=== PATIENT | female | born 1970 | race Caucasian/White ===

== ENCOUNTER 2018-05-08 03:22 | Inpatient (IN) | payer OTHER ==
[2018-05-08] MEDS ORDERED: PROPOFOL 1,000 MG in EMPTY BAG 1 BAG IV ONE (03:31)
[2018-05-08 03:49] LABS: Glucose,Whole Blood 115 mg/dL (75-99)
[2018-05-08 03:57] LABS: Basophils % (A) 0 %; Eosinophils # (A) 0.4 k/uL (0-0.7); Eosinophils % (A) 2 %; HGB 13.9 gm/dL (11.4-16.0); Lymphocytes # (A) 1.9 k/uL (1.0-4.8); Lymphocytes % (A) 9 %; MCH 31.5 pg (25.0-35.0); MCHC 33.8 g/dL (31.0-37.0); Mean Platelet Volume 6.5; Monocytes # (A) 0.8 k/uL (0-1.0); Monocytes % (A) 4 %; Neutrophils # (A) 17.5 k/uL (1.3-7.7); Neutrophils % (A) 85 %; Platelet Count 272 k/uL (150-450); RDW 12.6 % (11.5-15.5); WBC 20.7 k/uL (3.8-10.6)
[2018-05-08 04:15] LABS: ABG Base Excess 0.9 mmol/L; ABG HCO3 26 mmol/L (21-25); ABG PCO2 45 mmHg (35-45); ABG PH 7.38 (7.35-7.45); ABG PO2 329 mmHg (83-108); ABG TCO2 28 mmol/L (19-24)
[2018-05-08 04:27] LABS: ALT 32 U/L (9-52); AST 83 U/L (14-36); Acetaminophen <10.0 ug/mL; Albumin 3.9 g/dL (3.5-5.0); Alcohol <10 mg/dL; Alkaline Phosphatase 84 U/L (38-126); Anion Gap 7 mmol/L; Blood Urea Nitrogen 13 mg/dL (7-17); Calcium 9.1 mg/dL (8.4-10.2); Carbon Dioxide 23 mmol/L (22-30); Chloride 110 mmol/L (98-107); Glucose 112 mg/dL (74-99); Potassium 4.1 mmol/L (3.5-5.1); Salicylate <1.0 mg/dL; Sodium 140 mmol/L (137-145); Total Bilirubin 0.5 mg/dL (0.2-1.3); Total Protein 6.7 g/dL (6.3-8.2)
[2018-05-08] MEDS ORDERED: ACETAMINOPHEN SUPPOSITORY 650 MG SUPP RECTAL PRN (05:14)
[2018-05-08] MEDS ORDERED: NALOXONE 0.4 MG/ML 1 ML VIAL IV PRN (05:14)
[2018-05-08] MEDS ORDERED: ARTIFICIAL TEARS OINTMENT 3.5 GM TUBE BOTH EYES PRN (05:14)
[2018-05-08] MEDS ORDERED: LORazepam 2 MG/ML INJ IV STA (05:18)
[2018-05-08] MEDS ORDERED: SODIUM CHLORIDE 0.9% 1,000 ML IV ONE (05:21)
--- NOTE | 2018-05-08 05:21 | ED ---
Overdose HPI - General Chief Complaint: Overdose Stated Complaint: Overdose Time Seen by Provider: 05/08/18 03:24 Source: EMS Mode of arrival: EMS Limitations: language barrier, altered mental status, physical limitation - History of Present Illness Initial Comments: This patient is a 48-year-old woman transferred here from outside hospital. Patient not able to give any history due to altered mental status and intubation. The history reported to us from the outside hospital is that she had a suicide attempt. There is a Xerox copy of a suicide note in the patient' s record from the other hospital. It was reported to us that she had taken over 20 tablets of Zyprexa. The patient reportedly arrived there with a GCS below 8 and was therefore intubated for altered mental status and airway protection. MD Complaint: intentional overdose -: unknown How Overdose Was Discovered: other (Patient found by son) Treatments Prior to Arrival: oxygen, IV fluids, other - Related Data Home Medications Medication Instructions Recorded Confirmed No Known Home Medications 05/08/18 05/08/18 Allergies Allergy/AdvReac Type Severity Reaction Status Date / Time No Known Allergies Allergy Verified 05/08/18 03:49 Review of Systems ROS Statement: Those systems with pertinent positive or pertinent negative responses have been documented in the HPI. ROS Other: All systems not noted in ROS Statement are negative. Limitations: ROS unobtainable due to patients medical condition Past Medical History Past Medical History: No Reported History History of Any Multi-Drug Resistant Organisms: Unobtainable Past Surgical History: Hysterectomy Past Psychological History: Bipolar, Depression Smoking Status: Current every day smoker Past Alcohol Use History: None Reported Past Drug Use History: Marijuana General Exam Limitations: language barrier, altered mental status, physical limitation General appearance: obtunded Head exam: Present: atraumatic, normocephalic Eye exam: Present: normal appearance. Absent: scleral icterus, conjunctival injection ENT exam: Present: other (There is an endotracheal tube and gastric tube present with normal appearance.) Neck exam: Present: normal inspection Respiratory exam: Present: rhonchi. Absent: respiratory distress, wheezes, rales, chest wall tenderness Cardiovascular Exam: Present: regular rate, normal rhythm, normal heart sounds. Absent: systolic murmur, diastolic murmur, rubs, gallop GI/Abdominal exam: Present: soft. Absent: distended, tenderness, guarding, rebound, mass Extremities exam: Present: normal inspection, normal capillary refill. Absent: tenderness, pedal edema Back exam: Present: normal inspection Skin exam: Present: warm, dry, intact, normal color. Absent: rash Course Vital Signs 05/08/18 05/08/18 05/08/18 03:23 03:26 03:31 Temperature 96.8 F L Pulse Rate 120 H 111 H 113 H Respiratory 18 18 Rate Blood Pressure 158/96 148/91 142/88 O2 Sat by Pulse 100 100 100 Oximetry 05/08/18 05/08/18 05/08/18 03:54 04:05 04:20 Temperature Pulse Rate 109 H 117 H 112 H Respiratory 18 28 H 28 H Rate Blood Pressure 136/82 150/90 129/71 O2 Sat by Pulse 100 98 97 Oximetry 05/08/18 05/08/18 04:59 05:17 Temperature Pulse Rate 110 H 120 H Respiratory 25 H 27 H Rate Blood Pressure 145/78 149/81 O2 Sat by Pulse 98 100 Oximetry Medical Decision Making - Lab Data Result diagrams: 05/08/18 03:43 05/08/18 03:43 Lab Results 05/08/18 05/08/18 05/08/18 Range/Units 03:30 03:43 03:43 WBC 20.7 H (3.8-10.6) k/uL RBC 4.40 (3.80-5.40) m/uL Hgb 13.9 (11.4-16.0) gm/dL Hct 41.0 (34.0-46.0) % MCV 93.0 (80.0-100.0) fL MCH 31.5 (25.0-35.0) pg MCHC 33.8 (31.0-37.0) g/dL RDW 12.6 (11.5-15.5) % Plt Count 272 (150-450) k/uL Neutrophils % 85 % Lymphocytes % 9 % Monocytes % 4 % Eosinophils % 2 % Basophils % 0 % Neutrophils # 17.5 H (1.3-7.7) k/uL Lymphocytes # 1.9 (1.0-4.8) k/uL Monocytes # 0.8 (0-1.0) k/uL Eosinophils # 0.4 (0-0.7) k/uL Basophils # 0.0 (0-0.2) k/uL Sample Site ABG pH (7.35-7.45) ABG pCO2 (35-45) mmHg ABG pO2 (83-108) mmHg ABG HCO3 (21-25) mmol/L ABG Total CO2 (19-24) mmol/L ABG O2 Saturation (94-97) % ABG Base Excess mmol/L Miller Test FiO2 % Sodium 140 (137-145) mmol/L Potassium 4.1 (3.5-5.1) mmol/L Chloride 110 H (98-107) mmol/L Carbon Dioxide 23 (22-30) mmol/L Anion Gap 7 mmol/L BUN 13 (7-17) mg/dL Creatinine 0.69 (0.52-1.04) mg/dL Est GFR (CKD-EPI)AfAm >90 (>60 ml/min/1.73 sqM) Est GFR (CKD-EPI)NonAf >90 (>60 ml/min/1.73 sqM) Glucose 112 H (74-99) mg/dL POC Glucose (mg/dL) 115 H (75-99) mg/dL POC Glu Girl Friday ID Naomi Trejo Calcium 9.1 (8.4-10.2) mg/dL Total Bilirubin 0.5 (0.2-1.3) mg/dL AST 83 H (14-36) U/L ALT 32 (9-52) U/L Alkaline Phosphatase 84 (38-126) U/L Total Protein 6.7 (6.3-8.2) g/dL Albumin 3.9 (3.5-5.0) g/dL Salicylates <1.0 mg/dL Acetaminophen <10.0 ug/mL Serum Alcohol <10 mg/dL 05/08/18 Range/Units 04:05 WBC (3.8-10.6) k/uL RBC (3.80-5.40) m/uL Hgb (11.4-16.0) gm/dL Hct (34.0-46.0) % MCV (80.0-100.0) fL MCH (25.0-35.0) pg MCHC (31.0-37.0) g/dL RDW (11.5-15.5) % Plt Count (150-450) k/uL Neutrophils % % Lymphocytes % % Monocytes % % Eosinophils % % Basophils % % Neutrophils # (1.3-7.7) k/uL Lymphocytes # (1.0-4.8) k/uL Monocytes # (0-1.0) k/uL Eosinophils # (0-0.7) k/uL Basophils # (0-0.2) k/uL Sample Site Right Radial ABG pH 7.38 (7.35-7.45) ABG pCO2 45 (35-45) mmHg ABG pO2 329 H (83-108) mmHg ABG HCO3 26 H (21-25) mmol/L ABG Total CO2 28 H (19-24) mmol/L ABG O2 Saturation 100.0 H (94-97) % ABG Base Excess 0.9 mmol/L Miller Test Yes FiO2 100 % Sodium (137-145) mmol/L Potassium (3.5-5.1) mmol/L Chloride (98-107) mmol/L Carbon Dioxide (22-30) mmol/L Anion Gap mmol/L BUN (7-17) mg/dL Creatinine (0.52-1.04) mg/dL Est GFR (CKD-EPI)AfAm (>60 ml/min/1.73 sqM) Est GFR (CKD-EPI)NonAf (>60 ml/min/1.73 sqM) Glucose (74-99) mg/dL POC Glucose (mg/dL) (75-99) mg/dL POC Glu Girl Friday ID Calcium (8.4-10.2) mg/dL Total Bilirubin (0.2-1.3) mg/dL AST (14-36) U/L ALT (9-52) U/L Alkaline Phosphatase (38-126) U/L Total Protein (6.3-8.2) g/dL Albumin (3.5-5.0) g/dL Salicylates mg/dL Acetaminophen ug/mL Serum Alcohol mg/dL - EKG Data -: EKG Interpreted by Me EKG shows normal: sinus rhythm, axis (Normal), intervals (Normal), QRS complexes (Normal), ST-T waves (Normal) Rate: tachycardia (Rate 110 bpm) Disposition Referrals: None,Stated [Primary Care Provider] - 1-2 days
[2018-05-08] MEDS: SODIUM CHLORIDE 0.9% 1,000 ML IV SCH ×3 (05:22→19:04)
--- NOTE | 2018-05-08 06:50 | P.HPIM ---
History of Present Illness H&P Date: 05/08/18 Chief Complaint: overdose, SI attempt The patient is a 48-year-old obese female that presented to the ED after being transferred from [facility] after attempted suicide with drug overdose. The patient is currently sedated and on a ventilator hence the history is obtained from medical records. Apparently the patient took 29 pills of Zyprexa 20 mg and left a suicide note which was found prematurely by her son , who called EMS. Upon arrival patient was reportedly unresponsive to verbal stimuli And there was dried bloody emesis on her face. On arrival to the ED it was noted she had a GCS of a and she was subsequently intubated for airway protection with etomidate and succinylcholine and sedated on Versed and subsequently transferred here, she was subsequently switched to propofol Review of records indicates significant leukocytosis of 20.7, EKG showing sinus tachycardia, UDS positive for THC, ABG 7.38/45/329/26 on FI o2 100%. Patient is noted to be tachycardic on the ventilator but normotensive. Review of Systems ROS unobtainable: due to endotracheal tube Past Medical History Past Medical History: No Reported History History of Any Multi-Drug Resistant Organisms: Unobtainable Past Surgical History: Hysterectomy Past Psychological History: Bipolar, Depression Smoking Status: Current every day smoker Past Alcohol Use History: None Reported Past Drug Use History: Marijuana Medications and Allergies Home Medications Medication Instructions Recorded Confirmed Type No Known Home Medications 05/08/18 05/08/18 History Allergies Allergy/AdvReac Type Severity Reaction Status Date / Time No Known Allergies Allergy Verified 05/08/18 03:49 Physical Exam Vitals: Vital Signs Temp Pulse Resp BP Pulse Ox 05/08/18 06:20 112 H 26 H 134/63 100 05/08/18 05:55 97.5 F L 114 H 24 141/53 100 05/08/18 05:17 120 H 27 H 149/81 100 05/08/18 04:59 110 H 25 H 145/78 98 05/08/18 04:20 112 H 28 H 129/71 97 05/08/18 04:05 117 H 28 H 150/90 98 05/08/18 03:54 109 H 18 136/82 100 05/08/18 03:31 113 H 18 142/88 100 05/08/18 03:26 96.8 F L 111 H 18 148/91 100 05/08/18 03:23 120 H 158/96 100 Intake and Output 05/07/18 05/07/18 05/08/18 14:59 22:59 06:59 Intake Total 27.056 Output Total 554 Balance -526.944 Intake: Intake, IV Titration 27.056 Amount Propofol 1,000 mg In 27.056 Empty Bag 1 bag @ Titrate IV .Q0M ONE Rx#: [id number] Output: Gastric Drainage 54 Urine 500 Other: Weight 117.163 kg Constitutional: No acute distress, conversant, ventilated and sedated on propofol Eyes: Anicteric sclerae, moist conjunctiva, no lid-lag, PERRLA ENMT: NC/AT,Oropharynx clear, no erythema, exudates, ET tube in place Neck:Supple, FROM, no masses, or JVD, No carotid bruits; No thyromegaly Lungs: Clear to auscultation, Clear to percussion, Normal respiratory effort, no accessory muscle use Cardiovascular: Heart regular in rate and rhythm, No murmurs, gallops, or rubs no peripheral edema Abdominal: Soft Nontender, nom distended, no guarding, no rebound or rigidity, Normoactive bowel sounds No hepatomegaly, No splenomegaly, No palpable mass No abdominal wall hernia noted Skin: Normal temperature, tone, texture, turgor, No induration No subcutaneous nodules, No rash, lesions, No ulcers Extremities:No digital cyanosis No clubbing, Pedal pulses intact and symmetrical Radial pulses intact and symmetrical Normal gait and station, No calf tenderness Results CBC & Chem 7: 05/08/18 03:43 05/08/18 03:43 Labs: Abnormal Lab Results - Last 24 Hours (Table) 05/08/18 05/08/18 05/08/18 Range/Units 03:30 03:43 03:43 WBC 20.7 H (3.8-10.6) k/uL Neutrophils # 17.5 H (1.3-7.7) k/uL ABG pO2 (83-108) mmHg ABG HCO3 (21-25) mmol/L ABG Total CO2 (19-24) mmol/L ABG O2 Saturation (94-97) % Chloride 110 H (98-107) mmol/L Glucose 112 H (74-99) mg/dL POC Glucose (mg/dL) 115 H (75-99) mg/dL AST 83 H (14-36) U/L 05/08/18 Range/Units 04:05 WBC (3.8-10.6) k/uL Neutrophils # (1.3-7.7) k/uL ABG pO2 329 H (83-108) mmHg ABG HCO3 26 H (21-25) mmol/L ABG Total CO2 28 H (19-24) mmol/L ABG O2 Saturation 100.0 H (94-97) % Chloride (98-107) mmol/L Glucose (74-99) mg/dL POC Glucose (mg/dL) (75-99) mg/dL AST (14-36) U/L Assessment and Plan Assessment: The patient is admitted anticipated greater than 2 midnight stay with attempted suicide and intentional drug overdose was currently ventilator dependent for airway protection. Plan to consult in-house sail repairer, continue IV fluids. Currently afebrile, with noted leukocytosis, urinalysis negative, check chest x- ray and blood culture. Continue IV PPI therapy place the patient on DVT prophylaxis with Lovenox. We'll also consult psychiatry to see the patient once extubated. Continue to follow her clinical course. CODE STATUS Unable to obtain proceed with full code Anticipated discharge Be determined by clinical course (1) Intentional drug overdose Current Visit: Yes Status: Acute Code(s): T50.902A - POISONING BY UNSP DRUG/ MEDS/BIOL SUBST, SELF-HARM, INIT SNOMED Code(s): 86623348 (2) Ventilator dependent Current Visit: Yes Status: Acute Code(s): Z99.11 - DEPENDENCE ON RESPIRATOR [VENTILATOR] STATUS SNOMED Code(s): 319963044 (3) Suicide attempt Current Visit: Yes Status: Acute Code(s): T14.91XA - SUICIDE ATTEMPT, INITIAL ENCOUNTER SNOMED Code(s): 16908937 (4) Leukocytosis Current Visit: Yes Status: Acute Code(s): D72.829 - ELEVATED WHITE BLOOD CELL COUNT, UNSPECIFIED SNOMED Code(s): 442113512 (5) Marijuana abuse Current Visit: Yes Status: Acute Code(s): F12.10 - CANNABIS ABUSE, UNCOMPLICATED SNOMED Code(s): 97102985
[2018-05-08 06:57] LABS: Glucose,Whole Blood 94 mg/dL (75-99)
--- NOTE | 2018-05-08 07:14 | XR ---
EXAMINATION TYPE: XR chest 1V DATE OF EXAM: 05/08/2018 COMPARISON: Outside radiographs same day HISTORY: 48-year-old female with drug overdose TECHNIQUE: Single frontal view of the chest is obtained. FINDINGS: ET tube tip approximately 3.5 cm from the franki. NG tube courses below the diaphragm. Heart normal s ize. Aorta within normal limits. There is patchy and strandy right basilar opacity. Additional strand y density left infrahilar region. IMPRESSION: 1. Satisfactory ET and NG tubes. 2. Patchy right basilar atelectasis or developing pneumonitis. Follow-up can be performed.
[2018-05-08] MEDS: FAMOTIDINE 20 MG/2 ML VIAL IV SCH ×2 (08:37→20:54)
[2018-05-08] MEDS: ENOXAPARIN 40 MG/0.4 ML SYRINGE SQ SCH (08:37)
[2018-05-08] MEDS ORDERED: CHLORHEXIDINE GLUCONATE 15 ML CUP MUCOUS MEM SCH (09:00)
[2018-05-08] MEDS ORDERED: PROPOFOL 1,000 MG in EMPTY BAG 1 BAG IV SCH (09:00)
[2018-05-08 09:13] LABS: Magnesium 1.9 mg/dL (1.6-2.3); Phosphorus 3.8 mg/dL (2.5-4.5)
--- NOTE | 2018-05-08 09:56 | P.CNPUL ---
History of Present Illness Consult date: 05/08/18 Chief complaint: Altered mental status and acute drug overdose History of present illness: A 48-year-old obese white female patient, presented initially to [facility] with a suicidal attempt after ingesting 29 tablets of Zyprexa 20 mg. The patient also left a suicide note. Apparently the patient was found to be unresponsive by the son at around midnight. She was taken to [facility]. The exact timing of the ingestion was not known. Her initial Amarjit Coma Scale was 6. She was hypertensive. The patient was intubated and chest x-ray was done that confirmed position of the ET tube and following that the patient got transferred to our emergency department she was admitted to the intensive care unit. At the time of the arrival to the ICU, the patient was quite agitated and restless and the patient was started on Diprivan and currently she is on 35 mics of propofol infusion. She is able to withdraw to deep painful stimulation in all 4 extremities. Pupils are round 3 mm in size and they're sluggishly reactive to light. No nystagmus. No clonus. No seizure activity has been noted. No cardiac arrhythmias. No fever or any rigidity. The patient did not have a CAT scan of the brain. Her chest x-ray shows some limited infiltration of the right lung base and there is the concern of her having an aspiration pneumonia and for that reason the patient was placed on IV Zosyn. The urine drug screen was also positive for tetrahydrocannabinol cannabinoids and the blood gases from this morning showed a pH of 7.38 with a pCO2 of 45 and pO2 of 329 and this was done 100% FiO2 and current vent setting includes an assist-control mode at the rate of 14 with a tidal volume of 450, FiO2 is down to 50% and a PEEP is at 5. No significant orotracheal secretions. She has a positive gag and cough reflex. Hemodynamically stable. No hypotension. No pressors. She is producing adequate amount of urine output. Cotton catheter is in place. Electrodes are all within normal limits. The salicylates were negative acetaminophen and alcohol level also negative. Lactic acid level is at 0.7. Note that the patient has history of depression and bipolar disorder. No 70 schedule schizophrenia. We are not aware of any details of her psychiatric history. Review of Systems ROS unobtainable: due to endotracheal tube Past Medical History Past Medical History: No Reported History Additional Past Medical History / Comment(s): Bipolar disorder, depression, generalized anxiety, obesity History of Any Multi-Drug Resistant Organisms: Unobtainable Past Surgical History: Hysterectomy Past Psychological History: Bipolar, Depression Smoking Status: Current every day smoker Past Alcohol Use History: None Reported Past Drug Use History: Marijuana Medications and Allergies Home Medications and Allergies Comment(s): Gen. appearance, comfortable likely distress. Intubated on a mechanical ventilator. Head exam was generally normal. There was no scleral icterus or corneal arcus. Mucous membranes were moist. Neck was supple and without jugular venous distension, thyromegaly, or carotid bruits. Carotids were easily palpable bilaterally. There was no adenopathy. The patient has an orogastric and orotracheal tube are in place. Lungs were clear to auscultation and percussion, and with normal diaphragmatic excursion. No wheezes or rales were noted. Cardiac exam revealed the PMI to be normally situated and sized. The rhythm was regular and no extrasystoles were noted during several minutes of auscultation. The first and second heart sounds were normal and physiologic splitting of the second heart sound was noted. There were no murmurs, rubs, clicks, or gallops. Abdominal exam revealed normal bowel sounds. The abdomen was soft, non-tender, and without masses, organomegaly, or appreciable enlargement of the abdominal aorta. Examination of the extremities revealed easily palpable radial, femoral and pedal pulses. There was no cyanosis, clubbing or edema. Examination of the skin revealed no evidence of significant rashes, suspicious appearing nevi or other concerning lesions. Neurologically the patient is withdrawing to deep painful stimulation. No facial asymmetry. Overall neurologic exam is limited yet is nonfocal. The patient is currently on Diprivan. Psychiatric history cannot be assessed. Home Medications Medication Instructions Recorded Confirmed Type OLANZapine [ZyPREXA] 20 mg PO HS 05/08/18 05/08/18 History Allergies Allergy/AdvReac Type Severity Reaction Status Date / Time No Known Allergies Allergy Verified 05/08/18 09:18 Physical Exam Vitals: Vital Signs Temp Pulse Resp BP Pulse Ox 05/08/18 06:20 112 H 26 H 134/63 100 05/08/18 05:55 97.5 F L 114 H 24 141/53 100 05/08/18 05:17 120 H 27 H 149/81 100 05/08/18 04:59 110 H 25 H 145/78 98 05/08/18 04:20 112 H 28 H 129/71 97 05/08/18 04:05 117 H 28 H 150/90 98 05/08/18 03:54 109 H 18 136/82 100 05/08/18 03:31 113 H 18 142/88 100 05/08/18 03:26 96.8 F L 111 H 18 148/91 100 05/08/18 03:23 120 H 158/96 100 Intake and Output 05/07/18 05/08/18 05/08/18 22:59 06:59 14:59 Intake Total 27.056 Output Total 554 Balance -526.944 Intake: Intake, IV Titration 27.056 Amount Propofol 1,000 mg In 27.056 Empty Bag 1 bag @ Titrate IV .Q0M ONE Rx#: [id number] Output: Gastric Drainage 54 Urine 500 Other: Weight 117.163 kg Results - Laboratory Findings CBC and BMP: 05/08/18 03:43 05/08/18 03:43 ABG ABG pH 7.38 (7.35-7.45) 05/08/18 04:05 ABG pCO2 45 mmHg (35-45) 05/08/18 04:05 ABG pO2 329 mmHg (83-108) H 05/08/18 04:05 ABG O2 Saturation 100.0 % (94-97) H 05/08/18 04:05 Abnormal lab findings: Abnormal Labs 05/08/18 05/08/18 05/08/18 03:30 03:43 03:43 WBC 20.7 H Neutrophils # 17.5 H ABG pO2 ABG HCO3 ABG Total CO2 ABG O2 Saturation Chloride 110 H Glucose 112 H POC Glucose (mg/dL) 115 H AST 83 H 05/08/18 04:05 WBC Neutrophils # ABG pO2 329 H ABG HCO3 26 H ABG Total CO2 28 H ABG O2 Saturation 100.0 H Chloride Glucose POC Glucose (mg/dL) AST - Diagnostic Findings Chest x-ray: image reviewed Assessment and Plan Plan: Assessment 1 acute intentional drug overdose as the patient has taken 30 tablets of Zyprexa 20 mg with a suicide note and this is clearly an acute suicidal attempt 2 acute suicidal attempt 3 chronic history of depression and bipolar disorder 4 altered mentation secondary to above 5 acute hypoxic respiratory failure secondary to above 6 suspected right lower lobe aspiration pneumonia 7 mild leukocytosis 8 marijuana use 9 obesity Plan Continue IV fluids. Continue vent support and necessary vent changes were done. The patient will be covered empirically with IV Zosyn. We'll give the patient is sedation holiday necessary mental status and his appropriate we'll make consider extubation as long as the patient is showing and demonstrating an adequate weaning parameters and ability to protect her airways. She needs a 24- hour sitter as the patient is severely depressed and this was a obvious suicidal event. DVT and GI prophylaxis. We'll continue to follow.
[2018-05-08] MEDS: PIPERACILLIN-TAZOBACTAM 3.375 GM in DEXTROSE/WATER 1 50ML.BAG IVPB SCH ×3 (10:29→23:57)
--- NOTE | 2018-05-08 11:59 | P.PN ---
Subjective Progress Note Date: 05/08/18 (Delayed charting patient seen on 0900) Principal diagnosis: Overdose Patient is a 48-year-old female who presented as a transfer from [facility] after but overdose of Zyprexa with suicidal ideation. She was subsequently intubated prior to admission. She was noted to have coffee ground emesis. His been admitted to the ICU in critical care is following her case. She has been started on antibiotics for possible aspiration pneumonia and she develop await blood cell count and right lower lobe infiltrate on chest x-ray. Review of record demonstrates a history of tobacco abuse, bipolar disorder, hypersomnia, and obesity. Patient seen and examined at bedside. She is currently sedated on vent. Per nursing no acute events. Objective - Vital Signs Vital signs: Vital Signs Temp 97.5 F L 05/08/18 05:55 Pulse 112 H 05/08/18 06:20 Resp 26 H 05/08/18 06:20 BP 134/63 05/08/18 06:20 Pulse Ox 100 05/08/18 06:20 Intake & Output 05/07/18 05/08/18 05/08/18 18:59 06:59 18:59 Intake Total 27.056 65.576 Output Total 554 Balance -526.944 65.576 Weight 117.163 kg Intake: Intake, IV Titration 27.056 65.576 Amount Propofol 1,000 mg In 27.056 Empty Bag 1 bag @ Titrate IV .Q0M ONE Rx#: [id number] Propofol 1,000 mg In 65.576 Empty Bag 1 bag @ Titrate IV .Q0M [facility] Rx#: [id number] Output: Gastric Drainage 54 Urine 500 - Exam General: ill appearing, mild distress, appears at stated age, obese Derm: warm, dry Head: atraumatic, normocephalic, symmetric Eyes: PERRL, anicteric sclera Mouth: no lip lesion, mucus membranes moist Cardiovascular: S1S2 tachy, no murmur, positive posterior tibial pulse bilateral , Lungs: CTA bilateral, no rhonchi, no rales , no accessory muscle use, on vent Abdominal: soft, nontender to palpation, no guarding, no appreciable organomegaly Ext: no gross muscle atrophy, no edema, no contractures Neuro: moving all 4 extremities independently, + tremors, no muscle rigidity Psych: sedated on vent - Labs CBC & Chem 7: 05/08/18 03:43 05/08/18 03:43 Labs: Abnormal Lab Results - Last 24 Hours (Table) 05/08/18 05/08/18 05/08/18 Range/Units 03:30 03:43 03:43 WBC 20.7 H (3.8-10.6) k/uL Neutrophils # 17.5 H (1.3-7.7) k/uL ABG pO2 (83-108) mmHg ABG HCO3 (21-25) mmol/L ABG Total CO2 (19-24) mmol/L ABG O2 Saturation (94-97) % Chloride 110 H (98-107) mmol/L Glucose 112 H (74-99) mg/dL POC Glucose (mg/dL) 115 H (75-99) mg/dL AST 83 H (14-36) U/L Creatine Kinase (30-135) U/L 05/08/18 05/08/18 Range/Units 04:05 07:30 WBC (3.8-10.6) k/uL Neutrophils # (1.3-7.7) k/uL ABG pO2 329 H (83-108) mmHg ABG HCO3 26 H (21-25) mmol/L ABG Total CO2 28 H (19-24) mmol/L ABG O2 Saturation 100.0 H (94-97) % Chloride (98-107) mmol/L Glucose (74-99) mg/dL POC Glucose (mg/dL) (75-99) mg/dL AST (14-36) U/L Creatine Kinase 4709 H* (30-135) U/L Assessment and Plan Assessment: Drug overdose with suicidal ideation, overdose of atypical antipsychotic -Suicide precautions -IV fluids -Telemetry monitoring -Monitor for signs of increasing rigidity and fevers line-psych consultation which patient awake talking Acute hypoxic respiratory failure -Secondary to drug overdose -Pulmonary recommendations Aspiration pneumonia probably aspiration pneumonia -Sputum culture -Zosyn -Repeat chest x-ray in a.m. Morbid obesity -Outpatient structured weight loss SIRS criteria - tachycardia and elevated respiratory rate felt to be secondary to overdose and not reflective of sepsis. DVT prophylaxis: Lovenox Discussed with: Nursing, Dr. Lester Anticipated discharge: 48-[address]: mental health A total of [25] minutes was spent on the care of this complex patient more than 50% of the time was spent in counseling and care coordination.
--- NOTE | 2018-05-08 14:22 | CDI ---
Last Revision, July 2017 Documentation Clarification Form Date: 05/08/2018 1:43:04 PM From: Mercy Hanley RN, CCDS Admit Date: 05/08/2018 5:18:00 AM Patient Name: Nesha Barron Visit Number: [id number] Discharge Date: ATTENTION: The Clinical Documentation Specialists (CDI) and [facility] Coding Staff appreciate your assistance in clarifying documentation. Please respond to the clarification below the line at the bottom and electronically sign. The CDI & [facility] Coding staff will review the response and follow-up if needed. Please note: Queries are made part of the Legal Health Record. If you have any questions, please contact the author of this message via ITS. Megan Escobar DO ED assessment notes patient unable to give any history due to altered mental status. Patient history/risk factors: Bipolar, Depression, Current Smoker. Clinical Indicators: Present as a transfer for suicide attempt. The Patient arrived to outside hospital with a GCS below 8 and was intubated for altered mental status and airway protection. She is obtunded, Urine drug screen is positive for THC. VS on arrival 148/91 111 18 96.8 Labs: WBC 20.7, Creatine Kinase 47.9 Chest x- Ray: Patchy right basilar atelectasis or developing pneumonitis Treatment: Neurological assessment per protocol Monitor Labs Vent Management Zosyn IV IV Fluids In your professional opinion, please clarify the etiology of the altered mental status, if known. Encephalopathy (specify Type: Metabolic, Toxic Other and Underlying Medical Illness) Other condition (please specify) Unable to determine Please continue to document in your progress notes and discharge summary in order to capture severity of illness and risk of mortality. Include clinical findings that support your diagnosis. Metabolic encephalopathy due to overdose MTDD
[2018-05-08] MEDS ORDERED: LORazepam 2 MG/ML INJ IV PRN (18:35)
[2018-05-09] MEDS: SODIUM CHLORIDE 0.9% 1,000 ML IV SCH ×2 (02:18→08:48)
[2018-05-09 07:34] LABS: Basophils % (A) 0 %; Eosinophils # (A) 0.1 k/uL (0-0.7); Eosinophils % (A) 1 %; HCT 37.5 % (34.0-46.0); HGB 12.1 gm/dL (11.4-16.0); Lymphocytes # (A) 2.2 k/uL (1.0-4.8); Lymphocytes % (A) 17 %; MCH 31.7 pg (25.0-35.0); MCHC 32.4 g/dL (31.0-37.0); MCV 97.8 fL (80.0-100.0); Mean Platelet Volume 6.6; Monocytes # (A) 0.7 k/uL (0-1.0); Monocytes % (A) 5 %; Neutrophils # (A) 9.9 k/uL (1.3-7.7); Neutrophils % (A) 76 %; Platelet Count 237 k/uL (150-450); RBC 3.83 m/uL (3.80-5.40); RDW 12.8 % (11.5-15.5); WBC 13.1 k/uL (3.8-10.6)
[2018-05-09 07:47] VITALS: RESP 16
[2018-05-09 07:48] LABS: Anion Gap 6 mmol/L; Blood Urea Nitrogen 7 mg/dL (7-17); Calcium 8.5 mg/dL (8.4-10.2); Carbon Dioxide 22 mmol/L (22-30); Chloride 115 mmol/L (98-107); Glucose 86 mg/dL (74-99); Magnesium 1.7 mg/dL (1.6-2.3); Phosphorus 3.3 mg/dL (2.5-4.5); Potassium 3.7 mmol/L (3.5-5.1); Sodium 143 mmol/L (137-145)
[2018-05-09] MEDS: FAMOTIDINE 20 MG/2 ML VIAL IV SCH (08:37)
[2018-05-09] MEDS: ENOXAPARIN 40 MG/0.4 ML SYRINGE SQ SCH (08:37)
[2018-05-09] MEDS: LACTATED RINGERS 1,000 ML IV SCH ×2 (08:37→19:30)
[2018-05-09] MEDS: PIPERACILLIN-TAZOBACTAM 3.375 GM in DEXTROSE/WATER 1 50ML.BAG IVPB SCH (09:00)
--- NOTE | 2018-05-09 09:31 | P.PN ---
Subjective Progress Note Date: 05/09/18 Principal diagnosis: Overdose Patient is a 48-year-old female who presented as a transfer from [facility] after but overdose of Zyprexa with suicidal ideation, note found by son. She was subsequently intubated prior to admission. She was noted to have coffee ground emesis. She was admitted to the ICU and critical care was consulted. She has been started on antibiotics for possible aspiration pneumonia as she develop await blood cell count and right lower lobe infiltrate on chest x-ray. Review of record demonstrates a history of tobacco abuse, bipolar disorder, hypersomnia, and obesity. She was extubated on the afternoon of 05/08. Patient seen and examined at bedside. Sleeping but easily arousable. Denies any chest, shortness of breath, or cough. No nausea or vomiting. Some tenderness to the abdominal wall. All questions answered best my ability. Informed patient that she'll need to see psychiatry prior to discharge. Discussed with her that we will repeat a chest x-ray in the morning to ensure that her aspiration is clearing. She then stated she needs something to drink and insists that there was bottled water corner. She was easily redirectable time we agreed to a cup with water. Objective - Vital Signs Vital signs: Vital Signs Temp 99.5 F 05/09/18 07:00 Pulse 112 H 05/09/18 07:00 Resp 16 05/09/18 07:00 BP 139/63 05/09/18 07:00 Pulse Ox 93 L 05/09/18 07:00 Intake & Output 05/08/18 05/09/18 05/09/18 18:59 06:59 18:59 Intake Total 3851.806 0134 0 Output Total 1265 655 Balance 754.302 6567 0 Intake: IV 1500 1800 Sodium Chloride 0.9% 1, 1500 1800 000 ml @ 150 mls/hr IV . Q6H40M BRYANT Rx#:[id number] Intake, IV Titration 68.620 50 Amount Piperacillin-Tazobactam 3 50 .375 gm In Dextrose/Water 1 50ml.bag @ 12.5 mls/hr IVPB Q8HR BRYANT Rx#: [id number] Propofol 1,000 mg In 68.620 Empty Bag 1 bag @ Titrate IV .Q0M BRYANT Rx#: [id number] Oral 0 Output: Urine 1265 655 Other: Voiding Method Indwelling Catheter Indwelling Catheter Indwelling Catheter - Exam General: Non toxic, no distress, appears at stated age, obese Derm: warm, dry Head: atraumatic, normocephalic, symmetric Eyes: PERRL, anicteric sclera Mouth: no lip lesion, mucus membranes moist Cardiovascular: S1S2 tachy, no murmur, positive posterior tibial pulse bilateral , Lungs: decreased bs bilateral, no rhonchi, no rales , no accessory muscle use, on vent Abdominal: soft, nontender to palpation, no guarding, no appreciable organomegaly Ext: no gross muscle atrophy, no edema, no contractures Neuro: moving all 4 extremities independently, no tremors, no muscle rigidity Psych: lethargic, confused intermittently, easily angry - Labs CBC & Chem 7: 05/09/18 06:57 05/09/18 06:57 Labs: Abnormal Lab Results - Last 24 Hours (Table) 05/08/18 05/09/18 05/09/18 Range/Units 07:30 06:57 06:57 WBC 13.1 H (3.8-10.6) k/uL Neutrophils # 9.9 H (1.3-7.7) k/uL Chloride 115 H (98-107) mmol/L Creatine Kinase 4709 H* (30-135) U/L Microbiology - Last 24 Hours (Table) 05/08/18 06:55 Gram Stain - Preliminary Sputum Sputum Culture - Preliminary Assessment and Plan Assessment: Drug overdose with suicidal ideation, overdose of atypical antipsychotics -Suicide precautions -IV fluids -Telemetry monitoring -psych consult - benzos for agitation Tachycardia - likely due to ovedose Hypercloremia - change to LR Metabolic encephalopathy - due to overdose - improving Aspiration pneumonia probably aspiration pneumonia -Sputum culture -Zosyn -Repeat chest x-ray in a.m. on 05/10 Morbid obesity -Outpatient structured weight loss SIRS criteria - tachycardia and elevated respiratory rate felt to be secondary to overdose and not reflective of sepsis. Acute hypoxic respiratory failure, resolved DVT prophylaxis: Lovenox Discussed with: Nursing, patient Anticipated discharge: [address]: [facility] A total of 25 minutes was spent on the care of this complex patient more than 50 % of the time was spent in counseling and care coordination.
[2018-05-09] MEDS: NICOTINE 14MG/24HR PATCH TRANSDERM SCH (11:44)
--- NOTE | 2018-05-09 14:45 | P.PN ---
Subjective Progress Note Date: 05/09/18 Principal diagnosis: Intentional drug overdose, acute suicidal attempt, acute hypoxic respiratory failure A 48-year-old obese white female patient, presented initially to [facility] with a suicidal attempt after ingesting 29 tablets of Zyprexa 20 mg. The patient also left a suicide note. Apparently the patient was found to be unresponsive by the son at around midnight. She was taken to [facility]. The exact timing of the ingestion was not known. Her initial Amarjit Coma Scale was 6. She was hypertensive. The patient was intubated and chest x-ray was done that confirmed position of the ET tube and following that the patient got transferred to our emergency department she was admitted to the intensive care unit. At the time of the arrival to the ICU, the patient was quite agitated and restless and the patient was started on Diprivan and currently she is on 35 mics of propofol infusion. She is able to withdraw to deep painful stimulation in all 4 extremities. Pupils are round 3 mm in size and they're sluggishly reactive to light. No nystagmus. No clonus. No seizure activity has been noted. No cardiac arrhythmias. No fever or any rigidity. The patient did not have a CAT scan of the brain. Her chest x-ray shows some limited infiltration of the right lung base and there is the concern of her having an aspiration pneumonia and for that reason the patient was placed on IV Zosyn. The urine drug screen was also positive for tetrahydrocannabinol cannabinoids and the blood gases from this morning showed a pH of 7.38 with a pCO2 of 45 and pO2 of 329 and this was done 100% FiO2 and current vent setting includes an assist-control mode at the rate of 14 with a tidal volume of 450, FiO2 is down to 50% and a PEEP is at 5. No significant orotracheal secretions. She has a positive gag and cough reflex. Hemodynamically stable. No hypotension. No pressors. She is producing adequate amount of urine output. Cotton catheter is in place. Electrodes are all within normal limits. The salicylates were negative acetaminophen and alcohol level also negative. Lactic acid level is at 0.7. Note that the patient has history of depression and bipolar disorder. No 70 schedule schizophrenia. We are not aware of any details of her psychiatric history. On 05/09/2018 patient seen in follow-up on the surgical floor. She is awake and alert, oriented 2, to person and place. Denies being actively suicidal, patient does remember excess dose of Zyprexa being suicidal. We in no distress , no chest pain, no shortness of breath, Room air pulse ox is 93%, patient is afebrile, hemodynamically stable, no ongoing fever or chills. Blood cultures and sputum cultures are negative, today's lab work has been reviewed, WBC is down to 13.1, from 20.7, electrolytes and renal profile are essentially unremarkable, with the exception of chloride, which is up to 115. Lung sounds are positive for some crackles at the bases. She has a safety fire boss at the bedside for suicidal precautions, and psychiatry service has been consulted Objective - Vital Signs Vital signs: Vital Signs Temp 99.5 F 05/09/18 07:00 Pulse 112 H 05/09/18 07:00 Resp 16 05/09/18 07:00 BP 139/63 05/09/18 07:00 Pulse Ox 93 L 05/09/18 07:00 Intake & Output 05/08/18 05/09/18 05/09/18 18:59 06:59 18:59 Intake Total 3314.453 9125 222 Output Total 9596 829 3066 Balance 905.710 0561 -778 Intake: IV 1500 1800 Sodium Chloride 0.9% 1, 1500 1800 000 ml @ 150 mls/hr IV . Q6H40M BRYANT Rx#:[id number] Intake, IV Titration 68.620 50 Amount Piperacillin-Tazobactam 3 50 .375 gm In Dextrose/Water 1 50ml.bag @ 12.5 mls/hr IVPB Q8HR BRYANT Rx#: [id number] Propofol 1,000 mg In 68.620 Empty Bag 1 bag @ Titrate IV .Q0M BRYANT Rx#: [id number] Oral 222 Output: Urine 5349 399 3529 Other: Voiding Method Indwelling Catheter Indwelling Catheter Indwelling Catheter - Exam GENERAL EXAM: Alert, pleasant 48-year-old white female comfortable in no apparent distress. Patient has a safety fire boss at the bedside for suicide precautions HEAD: Normocephalic/atraumatic. EYES: Normal reaction of pupils, equal size. Conjunctiva pink, sclera white. NOSE: Clear with pink turbinates. THROAT: No erythema or exudates. NECK: No masses, no JVD, no thyroid enlargement, no adenopathy. CHEST: No chest wall deformity. Symmetrical expansion. LUNGS: Equal air entry with minimal bibasilar crackles, wheeze, rhonchi or dullness. CVS: Regular rate and rhythm, normal S1 and S2, no gallops, no murmurs, no rubs ABDOMEN: Soft, nontender. No hepatosplenomegaly, normal bowel sounds, no guarding or rigidity. EXTREMITIES: No clubbing, no edema, no cyanosis, 2+ pulses and upper and lower extremities. MUSCULOSKELETAL: Muscle strength and tone normal. SPINE: No scoliosis or deformity SKIN: No rashes CENTRAL NERVOUS SYSTEM: Alert and oriented -3. No focal deficits, tone is normal in all 4 extremities. PSYCHIATRIC: Alert and oriented -3. Appropriate affect. Intact judgment and insight. - Labs CBC & Chem 7: 05/09/18 06:57 05/09/18 06:57 Labs: Abnormal Lab Results - Last 24 Hours (Table) 05/09/18 05/09/18 Range/Units 06:57 06:57 WBC 13.1 H (3.8-10.6) k/uL Neutrophils # 9.9 H (1.3-7.7) k/uL Chloride 115 H (98-107) mmol/L Microbiology - Last 24 Hours (Table) 05/08/18 07:30 Blood Culture - Preliminary Blood No Growth after 24 hours 05/08/18 06:55 Gram Stain - Preliminary Sputum Sputum Culture - Preliminary Assessment and Plan Plan: Assessment: 1 acute intentional drug overdose as the patient has taken 30 tablets of Zyprexa 20 mg with a suicide note and this is clearly an acute suicidal attempt 2 acute suicidal attempt 3 chronic history of depression and bipolar disorder 4 altered mentation secondary to above 5 acute hypoxic respiratory failure secondary to above 6 suspected right lower lobe aspiration pneumonia 7 mild leukocytosis 8 marijuana use 9 obesity Plan: Patient remains stable from pulmonary/critical care standpoint, mentation is improving, no no acute complaints, no shortness of breath or chest pain, cultures remains negative, no fever or chills. We will sign off, patient is awaiting psychiatric evaluation. No active issues from pulmonary/critical care standpoint. Thank you for this consultation I performed a history & physical examination of the patient and discussed their management with my nurse practitioner, Dana Kamara. I reviewed the nurse practitioner's note and agree with the documented findings and plan of care. Lung sounds are positive for bibasilar crackles. The findings and the impression was discussed with the patient. I attest to the documentation by the nurse practitioner. Time with Patient: Less than 30
[2018-05-09 14:53] VITALS: BMI 39.2
[2018-05-09] MEDS ORDERED: ACETAMINOPHEN TAB 325 MG TAB PO PRN (19:27)
[2018-05-09] MEDS: IPRATROPIUM-ALBUTEROL 3 ML NEB INHALATION PRN (20:02)
[2018-05-09] MEDS: FAMOTIDINE 20 MG TAB PO SCH (20:56)
[2018-05-09] MEDS: AMOXIC-POT CLAV 875-125MG 1 EACH TAB PO SCH (20:57)
[2018-05-10] MEDS: LACTATED RINGERS 1,000 ML IV SCH ×3 (03:17→11:52)
[2018-05-10] MEDS: IPRATROPIUM-ALBUTEROL 3 ML NEB INHALATION PRN ×2 (05:43→11:48)
[2018-05-10 08:13] LABS: Anion Gap 13 mmol/L; Blood Urea Nitrogen 6 mg/dL (7-17); Calcium 8.8 mg/dL (8.4-10.2); Carbon Dioxide 18 mmol/L (22-30); Chloride 112 mmol/L (98-107); Glucose 83 mg/dL (74-99); Sodium 143 mmol/L (137-145)
[2018-05-10 08:15] LABS: Basophils # (A) 0.1 k/uL (0-0.2); Basophils % (A) 1 %; Eosinophils # (A) 0.2 k/uL (0-0.7); Eosinophils % (A) 2 %; HCT 40.4 % (34.0-46.0); HGB 12.8 gm/dL (11.4-16.0); Hypochromasia Marked; Lymphocytes # (A) 2.1 k/uL (1.0-4.8); Lymphocytes % (A) 19 %; MCH 32.1 pg (25.0-35.0); MCHC 31.7 g/dL (31.0-37.0); MCV 101.4 fL (80.0-100.0); Monocytes # (A) 0.5 k/uL (0-1.0); Monocytes % (A) 4 %; Neutrophils # (A) 7.9 k/uL (1.3-7.7); Neutrophils % (A) 72 %; Platelet Count 242 k/uL (150-450); RBC 3.98 m/uL (3.80-5.40); RDW 12.9 % (11.5-15.5)
[2018-05-10 08:17] LABS: Potassium 4.1 mmol/L (3.5-5.1)
--- NOTE | 2018-05-10 08:53 | XR ---
EXAMINATION TYPE: XR chest 1V portable DATE OF EXAM: 05/10/2018 COMPARISON: 05/08/2018 HISTORY: Cough TECHNIQUE: Single frontal view of the chest is obtained. FINDINGS: Right lower lobe consolidation and small effusion. No overt failure or pneumothorax. Arthr opathy of the shoulders. Heart size normal. IMPRESSION: Right basilar infiltrate and small effusion.
--- NOTE | 2018-05-10 10:16 | P.PN ---
Progress Note - Text Progress Note Date: 05/10/18 Medically stable for discharge, awaiting psych evaluation
[2018-05-10] MEDS: AMOXIC-POT CLAV 875-125MG 1 EACH TAB PO SCH (11:51)
[2018-05-10] MEDS: ENOXAPARIN 40 MG/0.4 ML SYRINGE SQ SCH (11:51)
[2018-05-10] MEDS: FAMOTIDINE 20 MG TAB PO SCH (11:51)
[2018-05-10] MEDS: NICOTINE 14MG/24HR PATCH TRANSDERM SCH (11:51)
--- NOTE | 2018-05-10 13:04 | P.CN ---
Psychiatric Consult - . Consult date: 05/10/18 Consult:: Overdose of Zyprexa due to increased stress and marital interaction 05/10/18 12:59 Assessment and Plan (1) Bipolar 1 disorder, depressed, mild Narrative/Plan: Consult:Overdose of old zyprexa with no clinical certification or application on chart A 48-year-old obese white female patient, presented initially to [facility] with a suicidal attempt after ingesting 29 tablets of Zyprexa 20 mg. The patient also left a suicide note. Apparently the patient was found to be unresponsive by the son at around midnight. She was taken to [facility]. The exact timing of the ingestion was not known. Her initial Amarjit Coma Scale was 6. She was hypertensive. The patient was intubated and chest x-ray was done that confirmed position of the ET tube and following that the patient got transferred to our emergency department she was admitted to the intensive care unit. At the time of the arrival to the ICU, the patient was quite agitated and restless and the patient was started on Diprivan and currently she is on 35 mics of propofol infusion. She is able to withdraw to deep painful stimulation in all 4 extremities. Pupils are round 3 mm in size and they're sluggishly reactive to light. No nystagmus. No clonus. No seizure activity has been noted. No cardiac arrhythmias. No fever or any rigidity. The patient did not have a CAT scan of the brain. Mental status examination The patient presents alert, pleasant, and cooperative. There calmly seated without any agitated behavior. [She] reports that [] mood is good. Affect is congruent and euthymic, hypomanic. [She] deny having any suicidal or homicidal ideation intent or plan. [She] denies any auditory or visual hallucinations. There is no evidence of any delusional thought content. [Her] thought process is linear and goal-directed. [Her] speech is fluent and nonpressured. [Her] memory and concentration is grossly intact for the purposes of this session. Assessment and Plan Plan: Assessment: 1 acute intentional drug overdose as the patient has taken 30 tablets of Zyprexa 20 mg with a suicide note and this is clearly an acute suicidal attempt 2 acute suicidal attempt 3 chronic history of depression and bipolar disorder long-term history 4 altered mentation secondary to above stable now 5 acute hypoxic respiratory failure secondary to above stable now 6 suspected right lower lobe aspiration pneumonia 7 mild leukocytosis 8 marijuana use 9 obesity 10. Not actively suicidal homicidal at the current time and is able to be released and you need no longer have a sitter, she does need to be on the psychiatric unit. Thank you for the consult Jae Shearer D.O. PhD Current Visit: Yes Status: Acute Priority: Low Code(s): F31.31 - BIPOLAR DISORDER, CURRENT EPISODE DEPRESSED, MILD SNOMED Code(s): 91859226 (2) Personality disorder in adult Current Visit: Yes Status: Acute Priority: Low Code(s): F60.9 - PERSONALITY DISORDER, UNSPECIFIED SNOMED Code(s): 73906084 Time with Patient: Less than 30
--- NOTE | 2018-05-10 13:36 | P.DS ---
Providers Date of admission: 05/08/18 05:18 Expected date of discharge: 05/10/18 Attending physician: Lio Wall MD Consults: 05/08/18 05:14 Consult Physician Routine Consulting Provider: Jae Shearer Consult Reason/Comments: Overdose Do you want consulting provider notified?: Yes 05/08/18 08:18 Consult Physician Routine Consulting Provider: Lonnie Lester Consult Reason/Comments: acute respiratory Do you want consulting provider notified?: Yes Primary care physician: Stated None Hospital Course: Discharge Diagnosis: Suicide attempt Antipsychotic overdose Aspiration pneumonia Tachycardia Hyperchloremia Acute Metabolic encephalopathy Obesity BMI 39.3 SIRS criteria, sepsis ruled out Acute hypoxic respiratory failure Hospital Course: Patient is a 48-year-old female who presented as a transfer from [facility] after an overdose of Zyprexa with suicidal ideation, note found by son. She was subsequently intubated prior to admission. She was noted to have coffee ground emesis. She was admitted to the ICU and critical care was consulted. She has been started on antibiotics for possible aspiration pneumonia as she develop a white blood cell count and right lower lobe infiltrate on chest x-ray. Review of record demonstrates a history of tobacco abuse, bipolar disorder, hypersomnia, and obesity. She was extubated on the afternoon of 05/08. She was maintained on antibiotics. On 05/09 she was still having some confusion and hallucinations. Her tachycardia greatly improved. She still had some hypertension which was felt to be secondary to her Zyprexa overdose. On 05/10 she was alert and oriented 3 with clear thought process. She was seen by psychiatry. They felt that this was an acute suicide attempt but that the patient no longer actively suicidal. They felt that she was safe to discharge home. They did suggest continued outpatient follow-up with psychiatry. Patient plans to see the psychologist that is one block away from her house. She assures me that she will make an appointment and go and be seen with her . Dr. Shearer did not recommend any medications at this point in time for the patient. She will complete a course of Augmentin. She was [facility] the [facility] as she currently has no insurance. Patient seen and examined at bedside. No chest pain, shortness of breath, or nausea. Cough productive of slight sputum. Feeling well overall. States that her and her therapy and able to communicate better. She ensures me that she'll follow up with the psychologist at the end of her street. She does not want medications but is willing to speak with someone for counseling. Vital signs reviewed and stable. General: non toxic, no distress, appears at stated age, obese Derm: warm, dry Head: atraumatic, normocephalic, symmetric Eyes: EOMI, no lid lag, anicteric sclera Mouth: no lip lesion, mucus membranes moist Cardiovascular: S1S2 reg, no murmur, positive posterior tibial pulse bilateral, Lungs: CTA bilateral, no rhonchi, no rales , no accessory muscle use Abdominal: soft, nontender to palpation, no guarding, no appreciable organomegaly Ext: no gross muscle atrophy, no edema, no contractures Neuro: CN II-XI grossly intact, no focal neuro deficits Psych: Alert, oriented, boisterous and talkative today A total of 35 minutes of time were spent preparing this complex discharge summary . Pertinent Studies: CXR- right sided pneumonia Patient Condition at Discharge: Stable Plan - Discharge Summary Discharge Rx Participant: No New Discharge Prescriptions: New Amoxic-Pot Clav 875-125Mg [Augmentin 875-125] 1 each PO Q12HR #6 tab Discontinued OLANZapine [ZyPREXA] 20 mg PO HS Discharge Medication List Amoxic-Pot Clav 875-125Mg [Augmentin 875-125] 1 each PO Q12HR #6 tab 05/10/18 [ Rx] Follow up Appointment(s)/Referral(s): None,Stated [Primary Care Provider] - 1-[address] [facility] - 3 Days Activity/Diet/Wound Care/Special Instructions: regular diet activity as tolerated Please make arrangements to see a psychologist or licensed therapist for treatment sessions. Discharge Disposition: HOME SELF-CARE
[2018-05-10 15:28] VITALS: BP 122/79; PULSE 109; TEMP 99
== END 2018-05-10 15:44 | disposition home or self-care (01) | DRG 917 ==
LOC: EC 03:22 → 6ICU 05:18 → 3SUR 20:31
PROVIDERS: ADMIT Family Medicine; ATTEND Family Medicine
PROC: 5A1935Z Respiratory Ventilation, Less than 24 Consecutive Hours (ICD-10-PCS; principal; 2018-05-08)
DX: T43.592A Poisoning by other antipsychotics and neuroleptics, intentional self-harm, initial encounter (principal); G92 Toxic encephalopathy; J96.01 Acute respiratory failure with hypoxia; J69.0 Pneumonitis due to inhalation of food and vomit; F31.9 Bipolar disorder, unspecified; E66.01 Morbid (severe) obesity due to excess calories; F41.1 Generalized anxiety disorder; R00.0 Tachycardia, unspecified; E87.8 Other disorders of electrolyte and fluid balance, not elsewhere classified; F17.200 Nicotine dependence, unspecified, uncomplicated; I10 Essential (primary) hypertension; Z90.710 Acquired absence of both cervix and uterus; Z68.39 Body mass index [BMI] 39.0-39.9, adult
CPT/HCPCS: 36415; 36600; 51702; 71045; 80048; 80053; 80320; 82550; 82805; 83520; 83605; 83735; 84100; 85025; 87040; 87070; 87205; 93005; 94002; 94640; 96365; 96366; 96375; 99285